=== PATIENT | female | born 1965 | race Caucasian/White ===

== ENCOUNTER 2018-08-18 07:25 | Day surgery (SDC) | payer MEDICARE ==
[2018-08-17 12:17] VITALS: BMI 48.9
[2018-08-18] MEDS ORDERED: Midazolam HCl 2 mg/2 ml Vial ONE (08:28)
[2018-08-18] MEDS ORDERED: Lidocaine 1% PF 5 ML VIAL ONE (09:45)
[2018-08-18] MEDS ORDERED: PROPOFOL 200 MG/20 ML VIAL ONE (09:45)
--- NOTE | 2018-08-18 11:33 | OP ---
DATE OF PROCEDURE: 08/18/2018 PROCEDURE PERFORMED: Colonoscopy. PREMEDICATION: Given by Anesthesiology Department. PREPROCEDURE DIAGNOSIS: Colorectal screening. POSTPROCEDURE DIAGNOSIS: Normal colon exam. DESCRIPTION OF PROCEDURE: Written consents were obtained prior to procedure. After adequate sedation, rectal exam was performed and was normal. The endoscope was advanced to the cecum without difficulty. The quality of the bowel prep was good. The ileocecal valve and appendiceal orifice were visualized and appeared normal. The cecum, ascending colon, hepatic flexure, transverse colon, splenic flexure, descending colon, and rectosigmoid colon, all appeared normal. Retroflexion was normal. The patient tolerated the procedure well. ASSESSMENT: Normal colon exam. RECOMMENDATIONS: Repeat colon screening in 10 years. Job ID: [id number]
== END 2018-08-18 10:31 | disposition home or self-care (01) ==
LOC: SDC 07:25
PROVIDERS: ATTEND Internal Medicine Gastroenterology
PROC: 0DJD8ZZ Inspection of Lower Intestinal Tract, Via Natural or Artificial Opening Endoscopic (ICD-10-PCS; principal; 2018-08-18)
DX: Z12.11 Encounter for screening for malignant neoplasm of colon (principal); M19.90 Unspecified osteoarthritis, unspecified site; F41.9 Anxiety disorder, unspecified; F32.9 Major depressive disorder, single episode, unspecified; M79.7 Fibromyalgia; E78.00 Pure hypercholesterolemia, unspecified; F17.200 Nicotine dependence, unspecified, uncomplicated; Z79.1 Long term (current) use of non-steroidal anti-inflammatories (NSAID); Z79.899 Other long term (current) drug therapy; Z88.5 Allergy status to narcotic agent
CPT/HCPCS: J2001; J2250; J2704

== ENCOUNTER 2018-08-26 10:24 | Outpatient (CLI) | payer MEDICARE ==
--- NOTE | 2018-08-26 12:00 | MRI ---
LUMBAR SPINE MRI WITH AND WITHOUT CONTRAST: Date: 08-26-18 History: Lumbar radiculitis. Low back pain radiating down both lower extremities, back surgery in 200 8. Technique: Multiplanar, multisequence MR imaging of the lumbar spine provided without and with contra st media. FINDINGS: The sagittal STIR imaging demonstrates no focal area of osseous marrow edema. Bilateral pedicle screw s are present at L4 and L5 with an intervertebral disc device also noted at the L4-5 level. No signif icant anterolisthesis or retrolisthesis is noted within the lumbar spine. On the basis of five lumbar type vertebral bodies, conus medullaris terminates at T12-L1. T12-L1: No significant central canal or neural foraminal stenosis. Mild bilateral facet hypertrophy. L1-2: Mild bilateral facet hypertrophy. No significant central canal or neural foraminal stenosis. L2-3: There is disc desiccation and moderate bilateral facet hypertrophy. No associated significant c entral canal or neural foraminal stenosis. L3-4: There is disc desiccation and mild disc space narrowing. There is prominent bilateral facet hyp ertrophy with mild central canal stenosis. No significant neural foraminal stenosis. L4-5: Prominent bilateral facet hypertrophy. No significant central canal or neural foraminal stenosi s. L5-S1: Prominent bilateral facet hypertrophy. No significant central canal or neural foraminal stenos is. There is T2 hyperintensity involving the subcutaneous fat posteriorly from the axial level of the L1 vertebral body through the axial level of the L5 vertebral body, consistent with prior post-surgical change. The patient appears status post laminectomy at L4-5 level. Post contrast imaging demonstrates no abnormal enhancement involving nerve roots of the cauda equina, the imaged intervertebral discs, or the imaged osseous structures. Review of the retroperitoneal str uctures demonstrates no acute findings. IMPRESSION: Post-operative and degenerative change of the lumbar spine with no significant central canal or neura l foraminal stenosis seen. POS: [facility]
== END 2018-08-26 10:25 | disposition home or self-care (01) ==
LOC: BICMRI 10:24
PROVIDERS: ATTEND General Practice
DX: M47.26 Other spondylosis with radiculopathy, lumbar region (principal); Z98.890 Other specified postprocedural states
CPT/HCPCS: 72148